=== PATIENT | female | born 1985 | race Caucasian/White ===

== ENCOUNTER → 2024-02-06 17:58 | Outpatient (REF) | payer BC, SELFPAY | LOC: MRI 17:58 | PROVIDERS: ATTENDING PHYSICIAN Orthopaedic Surgery; FAMILY PHYSICIAN Internal Medicine | DX: M25.561 Pain in right knee (principal); Z98.890 Other specified postprocedural states; S83.271A Complex tear of lateral meniscus, current injury, right knee, initial encounter | CPT/HCPCS: 73721 ==